=== PATIENT | male | born 1950 | race Caucasian/White ===

== ENCOUNTER 2018-10-28 07:31 | Day surgery (SDC) | payer MEDICARE, BC ==
[~2018-10-28 07:31] MED LIST: ACETAMINOPHEN 1,000 MG/100 ML BTL IV ONE; CEFAZOLIN 2 Gram 2 GM/50 ML BAG IVPB ONE
[2018-10-28] MEDS ORDERED: PROPOFOL 10 MG/ML VIAL IV ONE (07:32)
[2018-10-28] MEDS ORDERED: KETAMINE HCL 100MG/1ML VIAL INJ ONE (07:32)
[2018-10-28] MEDS ORDERED: MIDAZOLAM HCL 2MG/2ML VIAL IV ONE (07:32)
[2018-10-28] MEDS ORDERED: BUPIVACAINE 0.25% W/EPI MPF 30ML VIAL IVP ONE (16:17)
--- NOTE | 2018-10-29 08:40 | Operative Note ---
DATE OF SURGERY: 10/28/2018 Surgeon: Bal Virmaontes DO PREOPERATIVE DIAGNOSES: 1. Incarcerated umbilical hernia. 2. Abdominal wall mass x3. 3. Left upper arm mass. POSTOPERATIVE DIAGNOSES: 1. Incarcerated umbilical hernia. 2. Abdominal wall mass x3. 3. Left upper arm mass. OPERATION: 1. Open umbilical herniorrhaphy with mesh. 2. Excision of 3 abdominal wall masses all measuring 3 cm into the subcu. 3. Excision of left upper arm mass measuring 3 cm into the subcu. PROCEDURE: The patient is a 68-year-old male who was brought to the operating room and placed in a supine position. General anesthesia was administered per department of anesthesia. The patient's abdomen was shaved was shaved of hair and prepped and draped in the usual fashion as well as his left upper arm. The 4 masses had been marked preoperatively. He also had an incarcerated umbilical hernia. Starting at the level of the navel, periumbilical region was anesthetized with a total of 10 mL of 0.25% Sensorcaine with epinephrine. A 4 cm curvilinear infraumbilical incision was made. This was carried down to the anterior rectus fascia. The umbilical stalk was encircled, dissected free from underlying hernia sac. Clean circumferential fascial edges were obtained. The hernia sac was then amputated and passed off the field. The hernia defect was measured to be about 1.5 cm. At this time, an [address] mesh was obtained. This was placed in an intraperitoneal position with excellent overlap of the hernia. The upper skirt was sutured to the anterior rectus fascia with 2-0 Vicryl. Tails overlapped the fascia and were sutured in place as well. The skin was tacked down to the fascia with 3-0 Vicryl, skin was closed with 4-0 Vicryl. Attention now turned to the masses. Each one had been pre-marked. Each one was anesthetized with a total of 5 mL of 0.25% Sensorcaine with epinephrine. Incision was made on the lateral one on the right. This did reveal a lipoma measuring 3 cm into the subcu. The identical pathology was noted on the left side. Each of these wounds were closed with 4-0 Vicryl. Attention turned to left arm. This was anesthetized with 5 mL of 0.25% Sensorcaine with epinephrine. Incision was made over this mass as well and a 3 cm lipoma was noted. These were all passed off the field. The wounds were all closed with 4-0 Vicryl. He was taken to the recovery room in satisfactory condition. FINDINGS AT THE TIME OF SURGERY: 1. Incarcerated umbilical hernia repaired as above. 2. Abdominal wall mass x3 all measuring 3 cm into the subcu. 3. Left upper arm mass measuring 3 cm into the subcu. CC: Radha MAIN
== END 2018-10-28 11:15 | disposition home or self-care (01) ==
LOC: SUR 07:31
PROVIDERS: ATTEND Surgery
DX: K42.0 Umbilical hernia with obstruction, without gangrene (principal); R19.05 Periumbilic swelling, mass or lump; R22.32 Localized swelling, mass and lump, left upper limb; I10 Essential (primary) hypertension; E78.00 Pure hypercholesterolemia, unspecified; G47.33 Obstructive sleep apnea (adult) (pediatric)
CPT/HCPCS: J3490

== ENCOUNTER 2019-07-22 10:43 | Day surgery (SDC) | payer MEDICARE, BC ==
[~2019-07-22 10:43] MED LIST changes: -ACETAMINOPHEN 1,000 MG/100 ML BTL IV ONE; +ACETAMINOPHEN 1,000 MG/100 ML BTL IVPB ONE; -CEFAZOLIN 2 Gram 2 GM/50 ML BAG IVPB ONE
[2019-07-22] MEDS ORDERED: MIDAZOLAM HCL 2MG/2ML VIAL IV ONE (10:44)
[2019-07-22] MEDS ORDERED: LIDOCAINE 2% MDV (20MG/ML) 20ML VIAL IV ONE (10:44)
[2019-07-22] MEDS ORDERED: FENTANYL PF 100MCG/2ML VIAL IV ONE (10:44)
[2019-07-22] MEDS ORDERED: PROPOFOL 10 MG/ML VIAL IV ONE (10:44)
[2019-07-22] MEDS ORDERED: RINGERS SOLUTION,LACTATED 1,000 ML IV ONE (11:04)
[2019-07-22] MEDS ORDERED: LIDOCAINE 1% MPF 100MG/10ML STERILE-PAK AMPULE SQ ONE (12:13)
--- NOTE | 2019-07-23 08:20 | Operative Note ---
DATE OF SURGERY: 07/22/2019 SURGEON: Joss Funk DO PREOPERATIVE DIAGNOSIS: Trigger finger of the right middle finger. POSTOPERATIVE DIAGNOSIS: Trigger finger of the right middle finger. OPERATION: Tenotomy A1 renetta right middle finger using 3.5 loop magnification. DESCRIPTION OF PROCEDURE: This 69-year-old male was taken to the operating room and placed in the supine position on the operating room table. Assisted local anesthesia was used, 1% Xylocaine plain was used as a local anesthetic. The right middle finger was identified and anesthetized overlying the A1 renetta on the palmar surface of the hand. After satisfactory anesthesia, the tourniquet elevated to 200 mmHg, and about 1.5 cm incision was made overlying the A1 renetta in the right palm. Dissection was carried down through the skin and subcutaneous tissue. Hemostasis obtained with the electrocautery. The renetta was split from its proximal to its distal margin under direct vision. Enlargement of the sublimis tendon was noted. This was not disturbed. The tendon itself was otherwise normal. We were able to flex and extend the finger without any difficulty at this point. The wound was irrigated and the wound closed with interrupted 6-0 nylon suture. Sterile dressings were applied. The patient was taken to the recovery room in satisfactory condition. JEOVANNY
== END 2019-07-22 12:54 | disposition home or self-care (01) ==
LOC: SUR 10:43
PROVIDERS: ATTEND Orthopaedic Surgery
DX: M65.331 Trigger finger, right middle finger (principal); I10 Essential (primary) hypertension; E78.00 Pure hypercholesterolemia, unspecified; K21.9 Gastro-esophageal reflux disease without esophagitis; G47.33 Obstructive sleep apnea (adult) (pediatric)
CPT/HCPCS: 26055; 01810; J3010; J3490; J7120